=== PATIENT | male | born 1945 | race Caucasian/White ===

== ENCOUNTER 2020-02-18 18:52 | Emergency (ER) | payer MEDICARE, OTHER ==
[~2020-02-18] VITALS: Ht 175.3 cm; Wt 95.0 kg
[2020-02-18 20:32] VITALS: BP 161/80
--- NOTE | 2020-02-18 21:41 | RAD ---
EXAM: KNEE RIGHT 4V 02/18/2020 8:44 PM CLINICAL INDICATION:Fall, right knee pain COMPARISON:None TECHNIQUE:3 views of the right knee FINDINGS:No acute fracture. Alignment is normal. There is mild medial compartment narrowing. No joint effusion. Moderate prepatellar soft tissue swelling consistent with bursitis. IMPRESSION: 1. No acute fracture. 2. Moderate prepatellar bursitis. Electronically signed by: Claritza Morrison MD (02/18/2020 9:38 PM) [id number]
--- NOTE | 2020-02-18 21:50 | RAD ---
EXAM: CT head and facial bones without contrast INDICATION: Fall, head and face injury COMPARISON: None TECHNIQUE: Axial CT imaging through the head and facial bones without intravenous contrast. Sagittal and coronal reformats were obtained of the facial bones. One or more of the following individualized dose reduction techniques were utilized for this examination: 1. Automated exposure control 2. Adjustment of the mA and/or kV according to patient size 3. Use of iterative reconstruction technique. FINDINGS: CT head: The lateral third ventricles are moderately enlarged, somewhat out of proportion to the sulci which are mild to moderately enlarged. Franklin-white matter differentiation is maintained. There is no intracranial hemorrhage, acute infarct, or mass lesion. The skull is intact. Small right frontal scalp contusion. The visualized paranasal sinuses and mastoid air cells are clear. Globes and orbits are intact. There are calcifications in the cavernous carotid arteries and right intradural vertebral artery. CT FACIAL BONES: No acute fracture. Facial bones are intact. Globes and orbits are normal. Paranasal sinuses and mastoid air cells are clear. Temporomandibular joints are normally aligned. There is degenerative disc disease in cervical spine with bridging osteophytes. IMPRESSION: 1. No acute intracranial abnormality. 2. There is moderate ventricular enlargement, somewhat out of proportion to sulcal enlargement, which can be seen with normal pressure hydrocephalus. 3. No acute fracture of the facial bones. Electronically signed by: Claritza Morrison MD (02/18/2020 9:47 PM) [id number]
--- NOTE | 2020-02-18 22:33 | PHYS DOC ---
Past History Past Medical History: Hypertension Past Surgical History: Tonsillectomy Alcohol Use: Occasionally Adult General Chief Complaint Chief Complaint: MECHANICAL FALL HPI HPI Patient is a 74 year old male who presents with complaint of head and facial trauma after having an accidental fall. Patient states he was walking on a sidewalk when he accidentally stepped into a hole, causing him to trip forward and fall onto his right knee and hitting his forehead and nose. Patient denies loss of consciousness. States he has been able to ambulate since falling. States this happened shortly prior to arrival. Had bleeding from the bridge of his nose which was controlled prior to arrival. Notes that the pain in his knee has worsened due to swelling but is able to bear weight on the affected knee. Not currently on any blood thinners. The patient denies any problems with his gait or balance prior to falling. Denies any problems with memory or confusion and has not had any vision changes, unilateral weakness, or difficulty with speech or swallowing. Review of Systems Review of Systems Constitutional: Denies fever or chills [] Eyes: Denies change in visual acuity, redness, or eye pain [] HENT: Denies nasal congestion or sore throat [] Respiratory: Denies cough or shortness of breath [] Cardiovascular: Denies chest pain or edema [] GI: Denies abdominal pain, nausea, vomiting, bloody stools or diarrhea [] : Denies dysuria or hematuria [] Musculoskeletal: Right knee pain and swelling [] Integument: Wounds [] Neurologic: Denies headache, focal weakness or sensory changes [] All other systems were reviewed and found to be within normal limits, except as documented in this note. Allergies Allergies Refer to nursing notes Physical Exam Physical Exam Constitutional: Well developed, well nourished, no acute distress, non-toxic appearance. [] HENT: Normocephalic, large superficial abrasion to right forehead measuring 5 cm x 5 cm, 2.5 cm angular skin tear across bridge of nose, bilateral external ears normal, oropharynx moist, no oral exudates. [] Eyes: PERRLA, EOMI, conjunctiva normal, no discharge. [] Neck: Normal range of motion, no tenderness, supple, no stridor. [] Cardiovascular:Heart rate regular rhythm, no murmur [] Lungs & Thorax: Bilateral breath sounds clear to auscultation [] Abdomen: Bowel sounds normal, soft, no tenderness, no masses, no pulsatile masses. [] Skin: Warm, dry, no erythema, no rash. [] Back: No tenderness, no CVA tenderness. [] Extremities: Moderate prepatellar soft tissue swelling over right knee, full range of motion present, tenderness anteriorly and along medial joint line, overlying abrasion to right knee. [] Neurologic: Alert and oriented X 3, normal motor function, normal sensory function, no focal deficits noted. [] Current Patient Data Vital Signs Vital Signs Date Time Temp Pulse Resp B/P (MAP) Pulse Ox O2 Delivery O2 Flow Rate FiO2 02/18/20 20:32 97.5 82 18 161/80 (107 98 Room Air Lab Results Not performed EKG EKG Not performed[] Radiology/Procedures Radiology/Procedures [address] [address] IMAGING REPORT Signed PATIENT: CASSIDY BEARD ACCOUNT: [id number] : 1945 LOCATION: ER AGE: 74 SEX: M EXAM STATUS: REG ER ORD. PHYSICIAN: NOÉ VARGAS MD REASON: fall, head and facial injury PROCEDURE: CT HEAD AND MAXILLOFACIAL WO EXAM: CT head and facial bones without contrast INDICATION: Fall, head and face injury COMPARISON: None TECHNIQUE: Axial CT imaging through the head and facial bones without intravenous contrast. Sagittal and coronal reformats were obtained of the facial bones. One or more of the following individualized dose reduction techniques were utilized for this examination: 1. Automated exposure control 2. Adjustment of the mA and/or kV according to patient size 3. Use of iterative reconstruction technique. FINDINGS: CT head: The lateral third ventricles are moderately enlarged, somewhat out of proportion to the sulci which are mild to moderately enlarged. Franklin-white matter differentiation is maintained. There is no intracranial hemorrhage, acute infarct, or mass lesion. The skull is intact. Small right frontal scalp contusion. The visualized paranasal sinuses and mastoid air cells are clear. Globes and orbits are intact. There are calcifications in the cavernous carotid arteries and right intradural vertebral artery. CT FACIAL BONES: No acute fracture. Facial bones are intact. Globes and orbits are normal. Paranasal sinuses and mastoid air cells are clear. Temporomandibular joints are normally aligned. There is degenerative disc disease in cervical spine with bridging osteophytes. IMPRESSION: 1. No acute intracranial abnormality. 2. There is moderate ventricular enlargement, somewhat out of proportion to sulcal enlargement, which can be seen with normal pressure hydrocephalus. 3. No acute fracture of the facial bones. Electronically signed by: Claritza Morrison MD (02/18/2020 9:47 PM) [id number] DICTATED AND SIGNED BY: CLARITZA MORRISON MD DATE: 02/18/202146 CC: NOÉ VARGAS MD; DIEGO LONGO MD ~ [place] [address] IMAGING REPORT Signed PATIENT: CASSIDY BEARD ACCOUNT: [id number] : 1945 LOCATION: ER AGE: 74 SEX: M EXAM STATUS: REG ER ORD. PHYSICIAN: NOÉ VARGAS MD REASON: fal;l. rt knee pain PROCEDURE: KNEE RIGHT 4V EXAM: KNEE RIGHT 4V 02/18/2020 8:44 PM CLINICAL INDICATION:Fall, right knee pain COMPARISON:None TECHNIQUE:3 views of the right knee FINDINGS:No acute fracture. Alignment is normal. There is mild medial compartment narrowing. No joint effusion. Moderate prepatellar soft tissue swelling consistent with bursitis. IMPRESSION: 1. No acute fracture. 2. Moderate prepatellar bursitis. Electronically signed by: Claritza Morrison MD (02/18/2020 9:38 PM) [id number] DICTATED AND SIGNED BY: CLARITZA MORRISON MD DATE: 02/18/202137 CC: NOÉ VARGAS MD; DIEGO LONGO MD ~ [] Course & Med Decision Making Course & Med Decision Making Pertinent Labs and Imaging studies reviewed. (See chart for details) CT imaging showed no acute injuries but did note increased size of the ventricles suggesting possible normal pressure hydrocephalus. The patient has a normal gait, no focal neurologic symptoms, denies any recent headaches or vision changes, and is alert and oriented x4. Patient not displaying active symptoms consistent with normal pressure hydrocephalus. I have however recommended follow-up with neurology on outpatient basis. Will refer to Dr. Jacobsen of neurology with recommended follow-up in the next 2 to 3 days for reevaluation. Abrasions were cleaned and dressed in the emergency department. Advised return to the emergency department for any worsening symptoms. Patient voiced understanding and agreement with treatment plan. [] Dragon Disclaimer Dragon Disclaimer This electronic medical record was generated, in whole or in part, using a voice recognition dictation system. Departure Departure: Impression: Primary Impression: Closed head injury Additional Impressions: Forehead abrasion Skin tear Abrasion of knee, right Knee bursitis Disposition: HOME/RESIDENCE PRIOR TO ADM Condition: STABLE Referrals: DIEGO LONGO MD (PCP) MARIEL JACOBSEN MD Patient Instructions: Abrasions, Bursitis, Head Injury, Adult, Skin Tear Care Additional Instructions: Follow-up with Dr. Jacobsen of neurology in the next 2 to 3 days for further evaluation of findings from your head CT today. Return to the emergency department for any worsening symptoms. Justification of Admission: Justification of Admission: Justification of Admission Dx: N/A Problem Qualifiers Primary Impression: Closed head injury Encounter type: initial encounter Qualified Codes: S09.90XA - Unspecified injury of head, initial encounter Additional Impressions: Forehead abrasion Encounter type: initial encounter Qualified Codes: S00.81XA - Abrasion of other part of head, initial encounter Abrasion of knee, right Encounter type: initial encounter Qualified Codes: S80.211A - Abrasion, r ight knee, initial encounter Knee bursitis Knee bursitis location: prepatellar bursitis Laterality: right Qualified Codes: M70.41 - Prepatellar bursitis, right knee NOÉ VARGAS MD Feb 18, 2020 22:33
[2020-02-18] MEDS ORDERED: BACITRACIN ZINC TOPICAL OINT PACKET. TP ONE (22:41)
== END 2020-02-18 22:50 | disposition home or self-care (01) ==
LOC: ER 18:52
DX: S01.21XA Laceration without foreign body of nose, initial encounter (principal); S00.81XA Abrasion of other part of head, initial encounter; S80.211A Abrasion, right knee, initial encounter; M70.51 Other bursitis of knee, right knee; I10 Essential (primary) hypertension; S09.90XA Unspecified injury of head, initial encounter; W18.39XA Other fall on same level, initial encounter; Y93.01 Activity, walking, marching and hiking; Y92.480 Sidewalk as the place of occurrence of the external cause; Y99.8 Other external cause status
CPT/HCPCS: 70450; 70486; 73564; 99285-25

== ENCOUNTER 2021-02-27 15:16 | Emergency (ER) | payer MEDICARE, OTHER ==
[~2021-02-27] VITALS: Ht 175.3 cm; Wt 90.5 kg
--- NOTE | 2021-02-27 15:56 | RAD ---
EXAM: CHEST 1 VIEW History: Cough COMPARISON: None available. TECHNIQUE: Single portable radiograph of the chest FINDINGS: The cardiac silhouette is unremarkable. Mild airspace opacities right lower lobe and right midlung zone likely infiltrates .. The costophrenic sulci are clear and well demarcated. IMPRESSION: Mild airspace opacities right lower lobe and right midlung zone likely infiltrates. Follow-up to [facility]. Electronically signed by: Zeeshan Moran MD (02/27/2021 3:54 PM) [id number]
--- NOTE | 2021-02-27 16:19 | PHYS DOC ---
Past History Past Medical History: Hypertension Past Surgical History: Tonsillectomy Alcohol Use: Occasionally General Adult EDM: Chief Complaint: COUGH HPI: HPI: 75-year-old male past medical history of hypertension and hyperlipidemia, presents the ED with complaints of fatigue and malaise, is requesting a Covid test is concerned he has an active Covid infection. Patient states he was considering vaccination for Covid but his second vaccination dose would be right before leaving for [place]. Return from [place] 1 week ago, was there for 4 weeks. Symptoms started as he left [place] including a nonproductive cough, anorexia, decreased taste and smell and malaise. Pt states his cough has significantly improved but "I'm just so weak and tired." Has a cardiology appointment scheduled for Mar 09 after patient had a heart scan that showed concern for blockage. Is not on any anticoagulants. Patient denies any associated chest pain, dyspnea, hemoptysis, leg swelling, sore throat, vomiting or diarrhea or abdominal pain. Review of Systems: Review of Systems: Constitutional: Denies fever or chills Eyes: Denies change in visual acuity HENT: Denies nasal congestion or rhinorrhea or sore throat Respiratory: Denies hemoptysis or shortness of breath Cardiovascular: Denies chest pain or edema GI: Denies abdominal pain, nausea, vomiting, bloody stools or diarrhea : Denies dysuria or hematuria Musculoskeletal: Denies back pain or joint pain Integument: Denies rash diaphoresis Neurologic: Denies headache, focal weakness or sensory changes Endocrine: Denies polyuria or polydipsia Lymphatic: Denies swollen glands Psychiatric: Denies depression or anxiety Allergies: Allergies: Allergies Coded Allergies Type Severity Reaction Last Updated Verified lidocaine Allergy Unknown 02/27/21 Yes menthol Allergy Unknown 02/27/21 Yes Physical Exam: PE: Constitutional: Well developed, well nourished, no acute distress, non-toxic appearance. [] HENT: Normocephalic, atraumatic, bilateral external ears normal, oropharynx moist, no oral exudates, nose normal. [] Eyes: PERRLA, EOMI, conjunctiva normal, no discharge. [] Neck: Normal range of motion, no tenderness, supple, no stridor. [] Cardiovascular:Heart rate regular rhythm, no murmur [] Lungs & Thorax: Bilateral breath sounds clear to auscultation [] Abdomen: Bowel sounds normal, soft, no tenderness, no masses, no pulsatile masses. [] Skin: Warm, dry, no erythema, no rash. [] Back: No tenderness, no CVA tenderness. [] Extremities: No tenderness, no cyanosis, no clubbing, ROM intact, no edema. [] Neurologic: Alert and oriented X 3, normal motor function, normal sensory function, no focal deficits noted. [] Psychologic: Affect normal, judgement normal, mood normal. [] Current Patient Data: Vital Signs: Vital Signs Date Time Temp Pulse Resp B/P (MAP) Pulse Ox O2 Delivery O2 Flow Rate FiO2 02/27/21 15:29 98.2 87 16 160/94 (116) 97 EKG: EKG: [] Radiology/Procedures: Radiology/Procedures: []IMAGING REPORT Signed PATIENT: CASSIDY BEARD ACCOUNT: [id number] : 1945 LOCATION: ER AGE: 75 SEX: M EXAM STATUS: REG ER ORD. PHYSICIAN: INDIGO BOLIVAR DO REASON: cough, pui PROCEDURE: CHEST AP ONLY EXAM: CHEST 1 VIEW History: Cough COMPARISON: None available. TECHNIQUE: Single portable radiograph of the chest FINDINGS: The cardiac silhouette is unremarkable. Mild airspace opacities right lower lobe and right midlung zone likely infiltrates .. The costophrenic sulci are clear and well demarcated. IMPRESSION: Mild airspace opacities right lower lobe and right midlung zone likely in filtrates. Follow-up to resolution. Electronically signed by: Zeeshan Moran MD (02/27/2021 3:54 PM) [id number] DICTATED AND SIGNED BY: ZEESHAN MORAN MD DATE: 02/27/21 1546 CC: ROBERT LONGO; INDIGO BOLIVAR DO ~MTH0 0 Heart Score: C/O Chest Pain: No Risk Factors: Risk Factors: DM, Current or recent (<one month) smoker, HTN, HLP, family history of CAD, obesity. Risk Scores: Score 0 - 3: 2.5% MACE over next 6 weeks - Discharge Home Score 4 - 6: 20.3% MACE over next 6 weeks - Admit for Clinical Observation Score 7 - 10: 72.7% MACE over next 6 weeks - Early Invasive Strategies Course & Med Decision Making: Course & Med Decision Making Pertinent Labs and Imaging studies reviewed. (See chart for details) COVID-19 CRITERIA: The patient was evaluated during the global COVID-19 pandemic, and that diagnosis was suspected/considered upon their initial pre sentation. Their evaluation, treatment and testing was consistent with current guidelines for patients who present with complaints or symptoms that may be related to COVID-19. Concern for COVID-19 infection in a well-appearing 75-year-old male, hemodynam ically stable, not requiring any oxygen. Patient with no chest pain or shortness of breath. Medical antibody information printed off and given to patient- referral line given. Will discharge home with strict ED return precautions were given for chest pain, shortness of breath, leg swelling, coughing blood or neurologic deficits. Encouraged urgent outpatient follow-up with PMD and pu lmonology as needed. Life-threatening processes were considered but are low suspicion at this time, given history, physical exam and ED workup. Pt was educated on all prescription medications and adverse effects. All patient's questions were answered and pt was stable at time of discharge. Life/limb-threatening differential includes but is not limited to, foreign body, infection/sepsis, congestive heart failure or pulmonary edema, lung cancer intrathoracic mass, bronchoconstriction, asthma/COPD/lung disease exacerbation, pneumothorax or hemothorax, pulmonary emboli, autoimmune/neurologic disease or toxidrome. I have spoken with the patient and/or caregivers. I explained the patient's condition, diagnoses and treatment plan based on the information available to me at this time. I have answered the patient and/or caregiver's questions and addressed any concerns. The patient and/or caregivers have a good understanding of patient's diagnosis, condition and treatment plan as can be expected at this point. Vital signs have been stable. Patient's condition is stable and appropriate for discharge from the emergency department. Patient will pursue further outpatient evaluation with primary care physician or other designated or consulting physician as outlined in the discharge instructions. The patient and/or caregivers are agreeable to this plan of care and follow-up instructions have been explained in detail. The patient and/or caregivers have received these instructions in written form and have expressed an understanding of the discharge instructions. The patient and/or caregivers are aware that any significant change of condition or worsening of symptoms should prompt immediate return to this or the closest emergency department or call to 911. Kathy Disclaimer: Kathy Disclaimer: This electronic medical record was generated, in whole or in part, using a voice recognition dictation system. Departure Departure: Impression: Primary Impression: COVID-19 Additional Impression: CAP (community acquired pneumonia) Disposition: HOME / SELF CARE / HOMELESS Condition: STABLE Referrals: ROBERT LONGO (PCP) Follow-up with your primary care physician in 24 to 48 hours OR FOLLOW UP WITH FAMILY MEDICINE: [address] [place] [address] Patient Instructions: Cough, Adult, Fatigue Additional Instructions: To make an appointment or see if you are eligible for monoclonal antibodies, you can call [phone], or talk to a health care provider who can give a referral. Return to ED immediately if your oxygen level drops below 90% (purchase a pulse oximetry at a medical supply store), difficulties breathing including rapid breathing or increased work of breathing (skin sucking under ribs), chest pain or stroke-like symptoms (facial droop, speech changes, arm/leg weakness). FOLLOW UP WITH PULMONOLOGY: FOR DEFINITIVE MANAGEMENT of chronic cough [facility] [address] [place] [address] You have been tested for or diagnosed with COVID-19. It is an infection caused by a new type of coronavirus. COVID-19 will cause cold-like or mild flu symptoms in most. It can cause more severe symptoms like problems breathing in some. There is no treatment for COVID-19. The body will clear the infection over time. Self-care will help to ease discomfort. Steps to Take: Self-Care Rest as needed. Healthy habits may help you feel better. Steps include: Choose healthy foods including fruits and vegetables. Drink water throughout the day. Get plenty of sleep each night. If you smoke, try to quit. It may ease breathing. Avoid alcohol. Keep Others Healthy The virus can spread to others. Droplets are released every time you sneeze or cough. The droplets can get into the mouth, nose, or eyes of people near you and lead to infection. To lower the chances of spreading COVID-19 to others: Stay at home until your doctor has said it is safe to leave. If you tested positive this will mean staying isolated until both of the following are true: At least 7 days have passed since the start of illness. You are free of fever for at least 72 hours without the use of medicine. During this time: - Avoid public areas, events, or transportation. Do not return to work or school until your doctor has said it is safe to do so. - Call ahead if you need to go to a medical center. Let them know you may have COVID-19. It will help them guide you where to go. They may also ask you to wear a facemask when you come to the office. - If you call for emergency medical services, let them know you may have COVID- 19. While at home: - Try to avoid close contact with others. Stay about 6 feet away. - If possible, spend most of your time in a separate room from others. - Use a face mask if you will be in close contact with others such as sharing a room or vehicle. - Have someone wipe down common surfaces in the home. Use household dumpman every day on areas like doorknobs, counters, or sinks. - Cough or sneeze into a tissue. Throw the tissue away right after use. If a tissue is not available, cough or sneeze into your elbow. - Wash your hands often. Wash them after sneezing or coughing. Use soap and water and wash for at least 20 seconds. Alcohol based hand oil tank car cleaner can be used if soap and water is not available. - Do not prepare food for others. Avoid sharing personal items like forks, spoons, or toothbrushes. - Avoid close contact with pets while you are sick. There is no evidence of the virus passing to pets. This is a safety step until more is known about this virus. Isolation can be frustrating. Social interaction can help. Keep in touch with friends and family through phone and tech options. You can still interact with others in your home, just keep a safe distance of about 6 feet. Follow-up: Your doctors office will check in with you to see if there are any changes in your health. You may be asked to keep track of symptoms to share with them. They will also let you know when you are clear to be in public again. Problems to Look Out For: Contact your doctor if your recovery is not going as you expect. Get emergency care if you have problems such as: - Trouble breathing - Nonstop chest pain or pressure - Changes in awareness, confusion, or problems waking - Lips or face have bluish color - Worsening of symptoms If you think you have an emergency, call for emergency medical services right away. As taken from [facility] Script[facility] Cefpodoxime Proxetil (CEFPODOXIME PROXETIL) 200 Mg Tablet 1 TAB PO BID for pneumonia for 10 Days, #20 TAB Prov: INDIGO BOLIVAR DO 02/27/21 Azithromycin (AZITHROMYCIN TABLET) 250 Mg Tablet 1 PKG PO UD for lung nodule for 5 Days, #6 TAB 0 Refills 2 the first day followed by 1 for days 2-5 Prov: INDIGO BOLIVAR DO 02/27/21 INDIGO BOLIVAR DO Feb 27, 2021 16:19
[2021-02-27 17:21] VITALS: BP 137/89
[2021-02-27] MEDS ORDERED: CEFP200T PO (17:37)
[2021-02-27] MEDS ORDERED: AZIT250T6 PO (17:37)
== END 2021-02-27 17:54 | disposition home or self-care (01) ==
LOC: ER 15:16
DX: U07.1 COVID-19 (principal); J18.9 Pneumonia, unspecified organism; I10 Essential (primary) hypertension; E78.5 Hyperlipidemia, unspecified; Z88.4 Allergy status to anesthetic agent; Z88.8 Allergy status to other drugs, medicaments and biological substances
CPT/HCPCS: 71045; 87426; 99284-25